=== PATIENT | male | born 1950 | race Caucasian/White ===

== ENCOUNTER 2024-07-13 13:03 | Outpatient (CLI) | payer MEDICARE | END 2024-07-13 13:04 | disposition home or self-care (01) | LOC: CSHCT 13:03 | PROVIDERS: ATTEND Family Medicine | DX: Z12.2 Encounter for screening for malignant neoplasm of respiratory organs (principal); Z87.891 Personal history of nicotine dependence | CPT/HCPCS: 71271 ==